=== PATIENT | female | born 1940 ===

== ENCOUNTER 2019-03-17 08:05 | Outpatient (CLI) | payer OTHER | END 2019-03-17 15:33 | disposition home or self-care (01) | LOC: RAD 08:05 | DX: M77.31 Calcaneal spur, right foot (principal) ==

== ENCOUNTER 2024-10-04 12:39 | Outpatient (CLI) | payer OTHER | END 2024-10-04 12:42 | disposition home or self-care (01) | LOC: RAD 12:39 | PROVIDERS: ATTEND Podiatrist Foot Surgery | DX: M77.32 Calcaneal spur, left foot (principal); L03.032 Cellulitis of left toe ==